=== PATIENT | female | born 1950 | race Caucasian/White ===

== ENCOUNTER → 2016-12-29 | Outpatient (CLI) | payer MEDICARE ==
[~2016-12-29] MED LIST: BIOT5CAP3 PO; CALC1CAP8 PO; CELE200C PO; CITA10TA4 PO; COLE1TAB2 PO; DIAZ5TAB PO; DICY10CA53 PO; DIPH25CA61 PO; HYDR200T PO; HYDR2TAB29 PO; LACT1CAP35 PO; OMEP40CA6 PO; PYRI100T2 PO; RIVA10TA PO; VERA180T56 PO; ZOLP5TAB6 PO
== END | disposition home or self-care (01) ==
LOC: CFH 10:20
PROVIDERS: ATTEND Genetic Counselor, MS
DX: E04.2 Nontoxic multinodular goiter (principal)
CPT/HCPCS: 76536

== ENCOUNTER → 2017-03-28 | Outpatient (CLI) | payer MEDICARE | END | disposition home or self-care (01) | LOC: CFH 09:18 | PROVIDERS: ATTEND Nurse Practitioner Family | DX: Z12.31 Encounter for screening mammogram for malignant neoplasm of breast (principal); Z80.3 Family history of malignant neoplasm of breast | CPT/HCPCS: G0202 ==

== ENCOUNTER → 2017-03-30 | Outpatient (CLI) | payer MEDICARE | END | disposition home or self-care (01) | LOC: CFH 08:54 | PROVIDERS: ATTEND Nurse Practitioner Family | DX: Z13.820 Encounter for screening for osteoporosis (principal); M81.0 Age-related osteoporosis without current pathological fracture | CPT/HCPCS: 77080 ==

== ENCOUNTER → 2017-05-19 | Outpatient (CLI) | payer MEDICARE ==
[~2017-05-19] MED LIST changes: +ALBUTEROL HFA INH; +LEVO125T PO; +SPIR25TA3 PO
[2017-05-19 10:53] LABS: BLOOD UREA NITROGEN 13 mg/dL (7-18)
[2017-05-19 10:56] LABS: ASPARTATE AMINO TRANSFERASE 21 U/L (15-37)
== END ==
LOC: STAR 09:26
PROVIDERS: ATTEND Surgery
DX: Z01.818 Encounter for other preprocedural examination (principal); E04.2 Nontoxic multinodular goiter; J45.909 Unspecified asthma, uncomplicated; E78.5 Hyperlipidemia, unspecified; I10 Essential (primary) hypertension; E03.9 Hypothyroidism, unspecified; M85.88 Other specified disorders of bone density and structure, other site; M85.80 Other specified disorders of bone density and structure, unspecified site; K22.9 Disease of esophagus, unspecified
CPT/HCPCS: 36415; 80053; 93005

== ENCOUNTER 2017-05-29 08:15 | Inpatient (IN) | payer MEDICARE ==
[~2017-05-29] VITALS: Ht 158.8 cm; Wt 102.0 kg
[~2017-05-29 08:15] MED LIST changes: -LEVO125T PO
[2017-05-29] MEDS ORDERED: LACTATED RINGERS 1,000 ML IV SCH (08:51)
[2017-05-29] MEDS ORDERED: LIDOCAINE 1%, 2ML SQ PRN (09:00)
[2017-05-29] MEDS ORDERED: MIDAZOLAM 1 MG/ML, 2ML ONE (09:56)
[2017-05-29] MEDS ORDERED: FENTANYL PF 250 MCG/5ML ONE (09:56)
[2017-05-29] MEDS ORDERED: SCOPOLAMINE PATCH, 1.5MG PATCH.TD72 TD ONE ×2 (10:32)
[2017-05-29] MEDS ORDERED: METOPROLOL 1 MG/ML, 5ML ONE (10:35)
[2017-05-29] MEDS ORDERED: METOPROLOL 1 MG/ML, 5ML IV PRN (11:30)
[2017-05-29] MEDS ORDERED: ACETAMINOPHEN 325 MG TABLET PO PRN (11:30)
[2017-05-29] MEDS ORDERED: PROMETHAZINE 25 MG/ML, 1ML IV PRN (11:30)
[2017-05-29] MEDS ORDERED: ALBUTEROL SULFATE 2.5 MG/3 ML NPPB PRN (11:30)
[2017-05-29] MEDS ORDERED: OXYcodone 5 MG/5 ML ORAL.SOL UDC PO PRN (11:30)
[2017-05-29] MEDS ORDERED: FENTANYL PF 100 MCG/2ML IV PRN (11:30)
[2017-05-29] MEDS ORDERED: LORazepam 2 MG/ML, 1ML IVPush PRN (11:30)
[2017-05-29] MEDS ORDERED: hydrALAzine 20 MG/ML, 1ML IV PRN (11:30)
[2017-05-29] MEDS ORDERED: PROPOFOL 10 MG/ML, 20ML ONE ×2 (11:33)
[2017-05-29] MEDS ORDERED: CEFAZOLIN 1,000 MG ONE ×2 (11:33)
[2017-05-29] MEDS ORDERED: ROCURONIUM 10 MG/ML,10ML ONE ×2 (11:33)
[2017-05-29] MEDS ORDERED: GLYCOPYRROLATE 0.2MG/1ML, 5ML ONE (11:33)
[2017-05-29] MEDS ORDERED: NEOSTIGMINE 1 MG/ML, 10ML ONE (11:33)
[2017-05-29] MEDS ORDERED: DEXAMETHASONE 4 MG/ML, 1ML ONE ×2 (11:33)
[2017-05-29] MEDS ORDERED: ONDANSETRON 2MG/ML, 2ML ONE ×2 (11:33)
[2017-05-29] MEDS ORDERED: SUCCINYLCHOLINE 20 MG/ML, 10ML ONE (11:33)
[2017-05-29] MEDS ORDERED: HYDROmorphone 1 MG/ML, 1ML ONE ×2 (11:54→12:28)
[2017-05-29] MEDS: HYDROmorphone 1 MG/ML, 1ML IV PRN ×5 (11:55→12:30)
[2017-05-29] MEDS ORDERED: PROMETHAZINE 25 MG/ML, 1ML ONE (12:27)
[2017-05-29] MEDS: ONDANSETRON 2MG/ML, 2ML IV PRN ×2 (13:58→20:19)
[2017-05-29] MEDS ORDERED: HYDROcodone/APAP 5/325 TABLET PO PRN (14:00)
[2017-05-29] MEDS ORDERED: morphine SULFATE 10 MG/ML, 1ML IV PRN (14:00)
[2017-05-29] MEDS: HYDROXYCHLOROQUINE 200 MG TABLET PO SCH (15:00)
[2017-05-29] MEDS: LACTOBACILLUS CHEW TABLET PO SCH (15:00)
[2017-05-29] MEDS: SPIRONOLACTONE 25 MG TABLET PO SCH (15:00)
[2017-05-29] MEDS ORDERED: DIPHENHYDRAMINE 50 MG/ML, 1ML ONE (15:15)
[2017-05-29] MEDS ORDERED: DIPHENHYDRAMINE 50 MG/ML, 1ML IVPush PRN (15:30)
[2017-05-29 16:30] VITALS: BP 138/80
[2017-05-29] MEDS ORDERED: ACETAMINOPHEN 325 MG TABLET ONE (18:59)
[2017-05-29] MEDS: ACETAMINOPHEN 325 MG TABLET PO PRN ×2 (19:01→23:40)
[2017-05-29 19:56] VITALS: BP 128/77
[2017-05-29] MEDS ORDERED: DIPHENHYDRAMINE 25 MG CAPSULE PO SCH (21:00)
[2017-05-29] MEDS ORDERED: VERAPAMIL ER 180MG TABLET.ER PO SCH (21:00)
[2017-05-29] MEDS: DIPHENHYDRAMINE 50 MG/ML, 1ML IVPush PRN (21:38)
[2017-05-29] MEDS: CALCIUM/VITAMIN D3 250-125 TABLET PO SCH (21:45)
[2017-05-29] MEDS: LACTATED RINGERS 1,000 ML IV SCH (21:46)
[2017-05-30 00:03] VITALS: BP 104/62
[2017-05-30] MEDS: LACTATED RINGERS 1,000 ML IV SCH (01:53)
[2017-05-30 02:15] VITALS: BP 105/60
[2017-05-30] MEDS: ONDANSETRON 2MG/ML, 2ML IV PRN (02:25)
[2017-05-30] MEDS: DIPHENHYDRAMINE 50 MG/ML, 1ML IVPush PRN (03:57)
[2017-05-30 07:06] VITALS: BP 117/70
[2017-05-30] MEDS ORDERED: OMEPRAZOLE 20 MG CAPSULE.DR PO SCH (07:30)
[2017-05-30] MEDS: SPIRONOLACTONE 25 MG TABLET PO SCH (09:00)
[2017-05-30] MEDS: HYDROXYCHLOROQUINE 200 MG TABLET PO SCH (09:00)
[2017-05-30] MEDS: LACTOBACILLUS CHEW TABLET PO SCH (09:00)
[2017-05-30] MEDS: CALCIUM/VITAMIN D3 250-125 TABLET PO SCH (09:00)
[2017-05-30 11:12] VITALS: BP 116/66
[2017-05-30] MEDS ORDERED: LEVO125T PO (11:22)
== END 2017-05-30 12:00 | disposition home or self-care (01) | DRG 626 ==
LOC: OUT 08:15 → 4NOR 13:35 → OUT 13:41 → 4NOR 13:42 → DCLOUNGE 05-30 11:44
PROVIDERS: ADMIT Surgery; ATTEND Surgery
PROC: 0GTK0ZZ Resection of Thyroid Gland, Open Approach (ICD-10-PCS; principal; 2017-05-29 11:15)
DX: E04.2 Nontoxic multinodular goiter (principal); Z68.41 Body mass index [BMI] 40.0-44.9, adult; M32.9 Systemic lupus erythematosus, unspecified; E78.5 Hyperlipidemia, unspecified; M85.80 Other specified disorders of bone density and structure, unspecified site; E03.9 Hypothyroidism, unspecified; J45.909 Unspecified asthma, uncomplicated; I10 Essential (primary) hypertension; M19.90 Unspecified osteoarthritis, unspecified site; Z90.710 Acquired absence of both cervix and uterus; Z88.5 Allergy status to narcotic agent; Z88.0 Allergy status to penicillin; Z88.6 Allergy status to analgesic agent; Z88.8 Allergy status to other drugs, medicaments and biological substances; Z81.8 Family history of other mental and behavioral disorders; Z83.49 Family history of other endocrine, nutritional and metabolic diseases; Z80.3 Family history of malignant neoplasm of breast; E66.9 Obesity, unspecified
CPT/HCPCS: 36415; 82040; 82310; 88172; 88307; J0690; J1100; J1170; J2250; J2405; J2550; J2704; J2710; J3010; J3490; C1760; J0330; J1200; J7120

== ENCOUNTER 2019-11-11 11:40 | Inpatient (IN) | payer MEDICARE ==
[~2019-11-11] VITALS: Ht 157.5 cm; Wt 95.5 kg
[~2019-11-11 11:40] MED LIST changes: -HYDR200T PO; +HYDR200T72 PO; +LEVO125T PO; +OMEP40CA42 PO; -OMEP40CA6 PO; -PYRI100T2 PO; +PYRI100T9 PO; -RIVA10TA PO; +RIVA10TA2 PO; -SPIR25TA3 PO; +SPIR25TA5 PO; -VERA180T56 PO; +VERA180T6 PO
--- NOTE | 2019-11-11 11:55 | NUR ---
DR FULLER BS FOR EXAM. PT REPORTS INTERMITTENT CP SINCE OCTOBER - VARIES IN LOCATION (RT SIDE, LT SIDE, MIDLINE) AND INTENSITY. HASN'T BEEN ABLE TO DETERMINE A PATTERN. HAS SPOKEN TO DIESEL DINKEY ENGINEER "WHO THINKS IT'S JUST HEARTBURN". REPORTS SIMILAR SX "OFF AND ON" PRIOR TO OCTOBER. WEARS COMPRESSION SOCKS DAILY. 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 HAS NOT TAKEN HER NTG TODAY - LAST DOSE ON MONDAY W/ QUESTIONABLE RESULT. HAS NOT TAKEN ASA - IT GIVES ME AN ULCER. PT AGREEABLE TO ASA 162MG TODAY. USES HOME OXYGEN [facility] AT [facility].
[2019-11-11] MEDS ORDERED: ASPIRIN 81 MG TABLET CHEW ONE (12:14)
[2019-11-11] MEDS ORDERED: ASPIRIN 81 MG TABLET CHEW PO ONE (12:30)
[2019-11-11 12:36] LABS: BASOPHILS # (AUTO) 0.06 x10^3/uL (0-0.1); BASOPHILS % (AUTO) 1 % (0-1); EOSINOPHILS % (AUTO) 1 % (1-7); LYMPHOCYTES # (AUTO) 1.35 x10^3/uL (1-3.4); LYMPHOCYTES % (AUTO) 18 % (22-44); MD NO; MEAN CORPUSCULAR HEMOGLOBIN 29.1 pg (27.0-34.8); MEAN CORPUSCULAR HGB CONC 33.4 g/dL (32.4-35.8); MEAN PLATELET VOLUME 8.5 fL (7.4-10.4); MONOCYTES # (AUTO) 0.61 x10^3/uL (0.2-0.8); MONOCYTES % (AUTO) 8 % (2-9); NEUTROPHILS # (AUTO) 5.22 x10^3/uL (1.8-6.8); NEUTROPHILS % (AUTO) 71 % (42-75); PLATELET COUNT 174 x10^3/uL (130-400); RED BLOOD COUNT 4.88 x10^6/uL (3.82-5.3)
[2019-11-11 12:37] LABS: ALANINE AMINOTRANSFERASE 26 U/L (12-78); ALBUMIN 4.1 g/dL (3.4-5.0); ANION GAP 6 mmol/L (5-15); CALCIUM 9.2 mg/dL (8.5-10.1); CHLORIDE 109 mmol/L (98-107); CREATININE 0.95 mg/dL (0.55-1.02)
[2019-11-11 12:42] LABS: ALKALINE PHOSPHATASE 78 U/L (45-117); BILIRUBIN,TOTAL 0.7 mg/dL (0.2-1.0); TOTAL PROTEIN 7.2 g/dL (6.4-8.2); TROPONIN I < 0.015 ng/mL (0.000-0.045)
[2019-11-11] MEDS ORDERED: SODIUM CHLORIDE FLUSH 10ML SYR IVF ONE (13:00)
[2019-11-11] MEDS ORDERED: SODIUM CHLORIDE FLUSH 10ML SYR IVF PRN (14:30)
[2019-11-11] MEDS ORDERED: ACETAMINOPHEN 325 MG TABLET PO PRN (15:00)
[2019-11-11] MEDS ORDERED: DIAZEPAM 5 MG TABLET PO PRN ×3 (15:00→20:30)
[2019-11-11] MEDS ORDERED: DICYCLOMINE 10 MG CAPSULE PO PRN ×2 (15:00→20:30)
[2019-11-11] MEDS ORDERED: NITROGLYCERIN 0.4 MG BOTTLE (25 TABS) SL PRN (15:00)
[2019-11-11] MEDS ORDERED: hydrALAzine 20 MG/ML, 1ML IVPush PRN (15:00)
[2019-11-11] MEDS ORDERED: ONDANSETRON 2MG/ML, 2ML IVPush PRN (15:00)
[2019-11-11] MEDS ORDERED: FAMOTIDINE 20 MG/2 ML IVPush SCH ×2 (15:30→19:00)
[2019-11-11] MEDS ORDERED: [UNRECOGNIZED DRUG - REMARK] MC SCH (16:30)
--- NOTE | 2019-11-11 17:49 | NUR ---
REPORT GIVEN TO RASTA
[2019-11-11 18:27] VITALS: BP 155/89
[2019-11-11] MEDS ORDERED: TRAZ-175 PO (18:34)
[2019-11-11] MEDS ORDERED: LEVO112T2 PO (18:36)
[2019-11-11 18:58] LABS: TROPONIN I < 0.015 ng/mL (0.000-0.045)
[2019-11-11] MEDS ORDERED: METO25TA91 PO (20:00)
[2019-11-11] MEDS ORDERED: NITR0.4T28 SL (20:00)
[2019-11-11] MEDS: HEPARIN 5,000 UNITS/ML, 1ML SQ SCH (20:04)
[2019-11-11] MEDS ORDERED: VERAPAMIL ER 180MG TABLET.ER PO SCH (21:00)
[2019-11-11] MEDS ORDERED: DIPHENHYDRAMINE 25 MG CAPSULE PO SCH (21:00)
[2019-11-11] MEDS ORDERED: TRAZODONE 100MG TABLET PO SCH (22:00)
[2019-11-12 00:54] LABS: TROPONIN I < 0.015 ng/mL (0.000-0.045)
[2019-11-12 01:41] VITALS: BP 129/75
[2019-11-12 05:11] LABS: ANION GAP 5 mmol/L (5-15); CALCIUM 8.8 mg/dL (8.5-10.1); CHLORIDE 108 mmol/L (98-107)
[2019-11-12 05:15] LABS: CHOL/HDL RATIO 2.8; CHOLESTEROL, TOTAL 130 mg/dL (140-239); CREATININE 0.98 mg/dL (0.55-1.02); HDL CHOL % 36 % (28-40); HDL CHOLESTEROL (DIRECT) 47 mg/dL (40-60); LDL CHOLESTEROL,CALCULATED 59 mg/dL (54-169); LDL/HDL RATIO 1.3 (0.5-3.0); TRIGLYCERIDES 122 mg/dL (50-200); VLDL CHOLESTEROL 24 mg/dL (0-25)
[2019-11-12] MEDS ORDERED: LEVOTHYROXINE 125 MCG TABLET PO SCH (06:00)
[2019-11-12] MEDS ORDERED: LEVOTHYROXINE 112 MCG TABLET PO SCH (06:00)
[2019-11-12] MEDS ORDERED: METOPROLOL SUCCINATE 25 MG TAB.ER.24H PO SCH ×2 (06:00→09:00)
[2019-11-12 06:35] LABS: BASOPHILS # (AUTO) 0.02 x10^3/uL (0-0.1); BASOPHILS % (AUTO) 0 % (0-1); EOSINOPHILS # (AUTO) 0.14 x10^3/uL (0-0.4); EOSINOPHILS % (AUTO) 2 % (1-7); LYMPHOCYTES # (AUTO) 1.02 x10^3/uL (1-3.4); LYMPHOCYTES % (AUTO) 15 % (22-44); MD NO; MEAN CORPUSCULAR HGB CONC 33.3 g/dL (32.4-35.8); MEAN CORPUSCULAR VOLUME 87.3 fL (80-100); MEAN PLATELET VOLUME 7.8 fL (7.4-10.4); MONOCYTES # (AUTO) 0.52 x10^3/uL (0.2-0.8); MONOCYTES % (AUTO) 8 % (2-9); NEUTROPHILS # (AUTO) 5.08 x10^3/uL (1.8-6.8); NEUTROPHILS % (AUTO) 75 % (42-75); PLATELET COUNT 164 x10^3/uL (130-400); RED BLOOD COUNT 4.82 x10^6/uL (3.82-5.3); RED CELL DISTRIBUTION WIDTH 14.7 % (9.6-15.2)
[2019-11-12 07:22] VITALS: BP 148/78
[2019-11-12] MEDS: HEPARIN 5,000 UNITS/ML, 1ML SQ SCH (07:58)
[2019-11-12] MEDS ORDERED: OMEPRAZOLE 20 MG CAPSULE.DR PO SCH (08:00)
[2019-11-12] MEDS ORDERED: DICYCLOMINE 10 MG CAPSULE PO PRN (08:30)
[2019-11-12] MEDS ORDERED: REGADENOSON 0.4 MG/5 ML SYRINGE ONE (08:50)
[2019-11-12] MEDS ORDERED: SPIRONOLACTONE 25 MG TABLET PO SCH (09:00)
[2019-11-12 14:04] VITALS: BP 130/77
[2019-11-12] MEDS ORDERED: OMEP40CA42 PO (15:19)
== END 2019-11-12 16:02 | disposition home or self-care (01) | DRG 392 ==
LOC: ED 13:42 → EDIP 14:29 → SUATTDRO 14:30 → 5SO 17:55 → EDIP 17:57 → 5SO 18:12
PROVIDERS: ADMIT Internal Medicine; ATTEND Hospitalist
DX: K21.9 Gastro-esophageal reflux disease without esophagitis (principal); I10 Essential (primary) hypertension; G43.909 Migraine, unspecified, not intractable, without status migrainosus; M17.0 Bilateral primary osteoarthritis of knee; Z79.82 Long term (current) use of aspirin
CPT/HCPCS: 36415; 38792; 71045; 78452; 80048; 80053; 80061; 83735; 83880; 84100; 84443; 84484; 85025; 93005; 93017; 93306; 93356; G0378; J1644; J2785; A9502; J3490; Q0163

== ENCOUNTER → 2020-11-25 | Outpatient (CLI) | payer MEDICARE ==
[~2020-11-25] MED LIST changes: +LEVO112T2 PO; +METO25TA91 PO; +NITR0.4T28 SL; +TRAZ-175 PO
== END | disposition home or self-care (01) ==
LOC: CFH 09:31
PROVIDERS: ATTEND Internal Medicine Cardiovascular Disease
DX: I08.3 Combined rheumatic disorders of mitral, aortic and tricuspid valves (principal); I11.0 Hypertensive heart disease with heart failure; I50.32 Chronic diastolic (congestive) heart failure; R06.02 Shortness of breath
CPT/HCPCS: 93306